=== PATIENT | male | born 1965 | race Caucasian/White ===

== ENCOUNTER 2017-03-19 23:09 | Emergency (ER) | payer OTHER ==
--- NOTE | 2017-03-19 23:35 | ED GI/GU/ABDOMINAL COMPLAINT ---
History of Present Illness General Chief Complaint: Abdominal Pain/Flank Pain Stated Complaint: " LT FLANK PAIN " Source: patient, family Exam Limitations: no limitations Vital Signs & Intake/Output Vital Signs & Intake/Output Vital Signs Date Time Temp Pulse Resp B/P B/P Pulse O2 O2 Flow FiO2 Mean Ox Delivery Rate 03/20 0326 97.0 89 18 143/97 98 Room Air 03/19 2324 96.5 96 16 98 Room Air ED Intake and Output 03/20 0000 03/19 1200 Intake Total 1000 Output Total Balance 1000 Intake, IV 1000 Patient 210 lb Weight Weight Reported by Patient Measurement Method Allergies Coded Allergies: NO KNOWN ALLERGIES (12/14/13) Triage Note: 51M C/O 8/10 ACHING LEFT SIDED FLANK/ABD PAIN SINCE 930PM, AROUND THE SAME TIME OF EATING TWO HOT DOGS. -N/V AND LAST BM TODAY AND NORMAL. ROCKING BACK AND FORTH IN TRIAGE IN PAIN. DIAPHORETIC. DENIES CP/SOB. DENIES SYMPTOMS. TO HUMBLE FOR EKG AND BLOODWORK Triage Nurses Notes Reviewed? yes Onset: Abrupt Duration: hour(s): (3), constant, continues in ED, getting worse Timing: single episode today Quality/Severity: cramping, moderate Severity Numbers: 8 Location: left flank, left lower quadrant Radiation: no radiation Activities at Onset: none Prior Abdominal Problems: none Sexually Active: No Last Time You Were Sexual: less than 2 months ago No Modifying Factors: none Modifying Factors: Worsens With: movement, palpation. Associated Symptoms: abdominal pain, diaphoresis HPI: 51-year-old male with no past medical history presents complaining of acute onset left flank and groin pain. Patient reports symptoms started suddenly around 9:30 PM tonight and have been worsening. He reports associated sweats chills and nausea. He denies any previous history of kidney stones or similar symptoms. Patient reports he was eating hot dogs at the time that started. He rates the pain as an 8 out of 10 that is located in the left flank and radiates to the left groin. No other associated symptoms including fevers, chills, back pain, dysuria, hematuria, chest pain, shortness of breath, hemoptysis or lower extremity edema. Patient has surgical history of appendectomy. (LISETTE ASHTON,KARLEE) Reconcile Medications Ibuprofen 800 MG TABLET 1 TAB PO TID PAIN Oxycodone HCl/Acetaminophen (Percocet 5-325 MG Tablet) 5 MG-325 MG TABLET 1 TAB PO 4XDP PRN PAIN EIGHT...[id number] Tamsulosin HCl (Flomax) 0.4 MG CAP.ER.24H 1 CAP PO DAILY TO IMPROVE FLOW (PATSY VALDEZ,OZZY Holloway) Past History Travel History Traveled to [place] past 21 day No Medical History Any Pertinent Medical History? see below for history History of MRSA: No History of VRE: No History of CDIFF: No Influenza Vaccine: 07/23/13 Surgical History Surgical History: none Psychosocial History Who do you live with Spouse What is your primary language Andorran Family History Hx Contributory? No (KARLEE KNOX PA-C) Review of Systems Review of Systems Constitutional: Reports: no symptoms. EENTM: Reports: no symptoms. Respiratory: Reports: no symptoms. Cardiovascular: Reports: no symptoms. GI: Reports: see HPI, abdominal pain, nausea. Genitourinary: Reports: no symptoms. Musculoskeletal: Reports: no symptoms. Skin: Reports: no symptoms. Neurological/Psychological: Reports: no symptoms. Hematologic/Endocrine: Reports: no symptoms. Immunologic/Allergic: Reports: no symptoms. All Other Systems: Reviewed and Negative (LISETTE ASHTON,KARLEE) Physical Exam Physical Exam General Appearance: well developed/nourished, alert, awake, anxious, moderate distress Head: atraumatic, normal appearance Eyes: Bilateral: normal appearance, PERRL, EOMI, normal inspection. Ears, Nose, Throat, Mouth: hearing grossly normal, moist mucous membrane, Tympanic normal Neck: normal inspection, supple, full range of motion, normal alignment Respiratory: normal breath sounds, chest non-tender, no respiratory distress, lungs clear Cardiovascular: regular rate/rhythm, normal peripheral pulses Peripheral Pulses: 2+ tibialis posterior (R), 2+ tibialis posterior (L), 2+ dorsalis pedis (R), 2+ dorsalis pedis (L) Gastrointestinal: normal bowel sounds, soft, no organomegaly, tenderness (left flank) Back: normal inspection, normal range of motion Extremities: normal range of motion Neurologic/Psych: no motor/sensory deficits, awake, alert, oriented x 3, normal gait, normal mood/affect Skin: intact, normal color Core Measures ACS in differential dx? Yes Severe Sepsis Present: No Septic Shock Present: No (BLACK PA-C,KARLEE) Progress Differential Diagnosis: AMI, biliary colic, bowel obstruction, cholecystitis, diverticulitis, ischemic bowel, inflamm bowel dis, perforated viscous, pyelonephritis, SBO, ureterolithiasis, urinary retention, urethritis, UTI/pyelo Plan of Care: Orders Procedure Date/time Status Add-on Test (ER Only) 03/19 235 Active LACTIC ACID 03/19 2340 Complete URINALYSIS 03/19 2317 Complete TROPONIN LEVEL 03/19 2317 Complete LIPASE 03/19 2317 Complete HEPATIC FUNCTION PANEL 03/19 2317 Complete CBC WITHOUT DIFFERENTIAL 03/19 2317 Complete BASIC METABOLIC PANEL 03/19 2317 Complete AMYLASE 03/19 2317 Complete EKG 03/19 2317 Active Laboratory Tests 03/20/17 0152: Urine Color YEL, Urine Clarity CLEAR, Urine pH 8.0, Ur Specific [place] 1.015, Urine Protein NEG, Urine Ketones NEG, Urine Nitrite NEG, Urine Bilirubin NEG, Urine Urobilinogen 0.2, Ur Leukocyte Esterase NEG, Ur Microscopic EXAM NOT REQUIRED, Urine Hemoglobin NEG, Urine Glucose NEG 03/19/17 2340: Anion Gap 9, Estimated GFR > 60, BUN/Creatinine Ratio 15.8, Glucose 101 H, Lactic Acid 1.8, Calcium 9.2, Total Bilirubin 0.4, Direct Bilirubin 0.2, AST 25, ALT 47, Alkaline Phosphatase 51, Troponin I < 0.01, Total Protein 7.0, Albumin 4.5, Amylase 66, Lipase 95, CBC w Diff NO MAN DIFF REQ, RBC 4.86, MCV 84.4, MCH 28.7, RDW 13.2, MPV 8.6, Gran % 46.6, Lymphocytes % 40.3, Monocytes % 10.4 H, Eosinophils % 2.1, Basophils % 0.6, Absolute Granulocytes 2.4, Absolute Lymphocytes 2.1, Absolute Monocytes 0.5, Absolute Eosinophils 0.1, Absolute Basophils 0, PUBS MCHC 34.0 Patient appears to be in obvious discomfort. He was given 30 mg of IV Toradol and a liter of normal saline. Basic blood work will be drawn and noncontrast CT scan of the pelvis ordered. Will follow-up on results. 12:30 AM: Upon reevaluation patient feels much better after receiving Toradol. He is resting comfortably. Waiting on labs and CT to come back. Patient reports pain is starting to return. He'll be given a dose of 2 mg of IV morphine. 1am: Patient signed out to Dr. Vaughn pending labs and CT scan. (LISETTE ASHTON,KARLEE) Initial ED EKG: ectopic atrial rhythm Hand-Off Endorsed To: OZZY VAUGHN MD Endorsed Time: 101 Pending: CT, labs (LISETTE ASHTON,KARLEE) Diagnostic Imaging: Viewed by Me: CT Scan. Discussed w/RAD: CT Scan. Radiology Impression: abd/pelvic ct... 2mm distal left stone... full report below. Comments: PATIENT: SATHYA JACKSON PRESENT AGE: 51 PATIENT ACCOUNT NO: [id number] : 67 LOCATION: [facility] ORDERING PHYSICIAN: KARLEE KNOX PA-C SERVICE DATE: 03/19/17 EXAM TYPE: CAT - CT ABD & PELVIS W/O IV CONTRAS EXAMINATION: CT ABDOMEN AND PELVIS WITHOUT CONTRAST CLINICAL INFORMATION: Left flank pain radiating into left groin. COMPARISON: CT scan of the abdomen and pelvis 12/14/2013. TECHNIQUE: Multidetector volumetric imaging was performed from the superior aspect of the liver through the pubic symphysis. Sagittal and coronal reformatted images were obtained on the technologist's workstation. DLP: 793.76 mGy-cm FINDINGS: LUNG BASES: Lung bases are clear. There is no pleural or pericardial effusion. LIVER, GALLBLADDER, AND BILIARY TREE: Unenhanced liver attenuation is homogeneous and there is no evidence of discrete hepatic parenchymal mass. The gallbladder is unremarkable with no evidence of radiopaque gallstones, gallbladder wall thickening, or obvious pericholecystic inflammatory changes. PANCREAS: Unremarkable. SPLEEN: Unremarkable. ADRENAL GLANDS: Unremarkable. KIDNEYS AND URETERS: There is a 0.2 cm calculus within the distal left ureter best illustrated on axial image 675 of 140 series 3 approximately 1.5 cm from its ureterovesicular junction. There is mild left hydroureteronephrosis and inflammatory stranding within the perinephric fat of left kidney and along the course of the left ureter. There is a 0.2 cm nonobstructing calculus within a calyx of the right kidney best illustrated on axial image 370. Kidneys are otherwise unremarkable. No discrete renal parenchymal mass. BLADDER: Unremarkable. GASTROINTESTINAL TRACT: The stomach is physiologically distended with ingested material. Small bowel is normal. There are chronic changes of an appendectomy. The colon is unremarkable. No abnormal perirectal or presacral inflammation. ABDOMINAL WALL: No significant hernia is appreciated. LYMPH NODES: There are no pathologically enlarged mesenteric or retroperitoneal lymph nodes. VASCULAR: The unenhanced abdominal aorta and inferior vena cava are unremarkable. OSSEOUS STRUCTURES: There is no acute fracture or dislocation. A large right hip joint effusion is noted. Multilevel degenerative spondylosis is visualized within the lower lumbar spine. IMPRESSION: There is a 0.2 cm calculus within the distal left ureter approximately 1.5 cm from its ureterovesicular junction. Mild left hydroureteronephrosis and inflammatory stranding within the perinephric fat of the left kidney and along the course of the left ureter. There is an additional 0.2 cm nonobstructive calculus within a calyx of the right kidney. There is a large right hip joint effusion. DICTATED BY: ELYSE CORDOVA MD DATE/TIME DICTATED:03/20/17104 CNC SERVICE TECHNICIAN:JENNI DATE/TIME TRANSCRIBED:03/20/17104 CONFIDENTIAL, DO NOT COPY WITHOUT APPROPRIATE AUTHORIZATION. <Electronically signed in Other Vendor System> SIGNED BY: ELYSE CORDOVA MD 03/20 011 (PATSY VALDEZ,OZZY Holloway) Departure Departure Disposition: STILL A PATIENT Condition: Stable Referrals: CRUZITO VALDEZ,ASH Pratt (PCP/Family) Departure Forms: Customer Survey General Discharge Information (KARLEE KNOX PA-C) Departure Clinical Impression Primary Impression: Acute left flank pain Secondary Impressions: Kidney stones, Renal colic on left side Prescriptions: Current Visit Scripts Ibuprofen 1 TAB PO TID #50 TAB Ref 1 Oxycodone HCl/Acetaminophen (Percocet 5-325 MG Tablet) 1 TAB PO 4XDP PRN PAIN #8 TAB EIGHT...[id number] Tamsulosin HCl (Flomax) 1 CAP PO DAILY #10 CAP PA/HANGING FLAGS DECORATOR Co-Sign Statement Statement: ED Attending supervision documentation- [X] I saw and evaluated the patient. I have also reviewed all the pertinent lab results and diagnostic results. I agree with the findings and the plan of care as documented in the PA's/HANGING FLAGS DECORATOR's documentation. Pt feeling better after supportive medications, 2mm stone noted. pt safe for discharge. Pt referred to urology. [] I have reviewed the ED Record and agree with the PA's/HANGING FLAGS DECORATOR's documentation. [] Additions or exceptions (if any) to the PAs/HANGING FLAGS DECORATOR's note and plan are summarized below: [] (PATSY VALDEZ,OZZY Holloway)
[2017-03-19 23:51] LABS: ABSOLUTE BASOPHIL COUNT 0 /CUMM (0.0-0.2); ABSOLUTE EOSINOPHIL COUNT 0.1 /CUMM (0.0-0.7); ABSOLUTE GRANULOCYTE CT 2.4 /CUMM (1.4-6.5); ABSOLUTE LYMPH COUNT 2.1 /CUMM (1.2-3.4); ABSOLUTE MONOCYTE COUNT 0.5 /CUMM (0.10-0.60); BASOPHIL % 0.6 % (0.0-2.0); EOSINOPHIL % 2.1 % (0-5); GRANULOCYTE % 46.6 % (42.2-75.2); MEAN CORPUSCULAR HGB 28.7 PG (27.0-31.0); MEAN CORPUSCULAR VOLUME 84.4 FL (80.0-94.0); MEAN PLATELET VOLUME 8.6 FL (7.4-10.4); PLATELET COUNT 261 /CUMM (130-400); RBC DISTRIBUTION WIDTH 13.2 % (11.5-14.5); RED BLOOD CELL CT 4.86 /CUMM (4.70-6.10); WHITE BLOOD CELL COUNT 5.1 /CUMM (4.8-10.8)
--- NOTE | 2017-03-20 01:15 | CT SCAN REPORT ---
EXAMINATION: CT ABDOMEN AND PELVIS WITHOUT CONTRAST CLINICAL INFORMATION: Left flank pain radiating into left groin. COMPARISON: CT scan of the abdomen and pelvis 12/14/2013. TECHNIQUE: Multidetector volumetric imaging was performed from the superior aspect of the liver through the pubic symphysis. Sagittal and coronal reformatted images were obtained on the technologist's workstation. DLP: 793.76 mGy-cm FINDINGS: LUNG BASES: Lung bases are clear. There is no pleural or pericardial effusion. LIVER, GALLBLADDER, AND BILIARY TREE: Unenhanced liver attenuation is homogeneous and there is no evidence of discrete hepatic parenchymal mass. The gallbladder is unremarkable with no evidence of radiopaque gallstones, gallbladder wall thickening, or obvious pericholecystic inflammatory changes. PANCREAS: Unremarkable. SPLEEN: Unremarkable. ADRENAL GLANDS: Unremarkable. KIDNEYS AND URETERS: There is a 0.2 cm calculus within the distal left ureter best illustrated on axial image 675 of 140 series 3 approximately 1.5 cm from its ureterovesicular junction. There is mild left hydroureteronephrosis and inflammatory stranding within the perinephric fat of left kidney and along the course of the left ureter. There is a 0.2 cm nonobstructing calculus within a calyx of the right kidney best illustrated on axial image 370. Kidneys are otherwise unremarkable. No discrete renal parenchymal mass. BLADDER: Unremarkable. GASTROINTESTINAL TRACT: The stomach is physiologically distended with ingested material. Small bowel is normal. There are chronic changes of an appendectomy. The colon is unremarkable. No abnormal perirectal or presacral inflammation. ABDOMINAL WALL: No significant hernia is appreciated. LYMPH NODES: There are no pathologically enlarged mesenteric or retroperitoneal lymph nodes. VASCULAR: The unenhanced abdominal aorta and inferior vena cava are unremarkable. OSSEOUS STRUCTURES: There is no acute fracture or dislocation. A large right hip joint effusion is noted. Multilevel degenerative spondylosis is visualized within the lower lumbar spine. IMPRESSION: There is a 0.2 cm calculus within the distal left ureter approximately 1.5 cm from its ureterovesicular junction. Mild left hydroureteronephrosis and inflammatory stranding within the perinephric fat of the left kidney and along the course of the left ureter. There is an additional 0.2 cm nonobstructive calculus within a calyx of the right kidney. There is a large right hip joint effusion.
[2017-03-20] MEDS ORDERED: PERCOCET 5-3251 EACH PO (03:15)
[2017-03-20] MEDS ORDERED: FLOMAX0.4 M1 PO (03:15)
[2017-03-20] MEDS ORDERED: IBUPROFEN800 M1 PO (03:15)
[2017-03-20 03:26] VITALS: BP 143/97
== END 2017-03-20 03:27 ==
LOC: ERH 23:09
PROVIDERS: Pediatrics
DX: N20.0 Calculus of kidney (principal); N23 Unspecified renal colic
CPT/HCPCS: 74176; 81003; 93005; 93010; 96374; 96375; J1885